=== PATIENT | female | born 1970 | race Caucasian/White ===

== ENCOUNTER 2016-08-25 08:01 | Emergency (ER) | payer BC ==
[~2016-08-25] VITALS: Ht 160 cm; Wt 86.2 kg
[~2016-08-25 08:01] MED LIST: AUGMENTIN 875875 M1 PO; BLACK COHOSH40 MG PO; CENTRUM SILVER1 EAC4 PO; DOCUSATE SODIU100 MG PO; FENOFIBRATE134 MG PO; FISH OIL 1,0001 EAC5 PO; FOLIC ACID 40400 MC1 PO; HYDROXYCHLOROQ200 M1 PO; IBUPROFEN 600600 M1 PO; KEFLEX250 MG PO; LEVOTHYROXIN0.175 MG PO; MEDROLDOSEPACK PO; MOTION RELIEF25 MG PO; MULTIVITAMINS PO; NASAL & SINUS D30 MG PO; NORCO 5-325 TA1 EACH PO; ONDANSETRON ODT4 MG PO; PAXIL10 MG PO; PRILOSEC 20 MG20 MG PO; SYNTHROID137 MCG PO; SYNTHROID150 MCG PO; VICODIN 5-5001 EACH PO
[2016-08-25] MEDS ORDERED: CIPRO500 MG PO (08:22)
[2016-08-25 08:29] LABS: URINE BILIRUBIN 1+ (Negative); URINE BLOOD 2+ (Negative); URINE COLOR YELLOW; URINE GLUCOSE-RANDOM* NEGATIVE (Negative); URINE KETONES TRACE (Negative); URINE LEUKOCYTES-REFLEX TRACE (Negative); URINE PROTEIN (DIPSTICK) 2+ (Negative)
[2016-08-25 08:33] LABS: ICTOTEST (BILI CONFIRMATORY) Negative (Negative)
[2016-08-25 08:39] LABS: HYALINE CASTS 0-3 Few /LPF (None Seen); SQUAMOUS 0-3 Few /LPF (0-3)
[2016-08-25 08:40] LABS: CRYSTALS None Seen /LPF (None Seen); URINE WBC-REFLEX 6-15 Few /HPF (0-5)
[2016-08-25 08:50] LABS: ABSOLUTE NEUTROPHILS 6.6 thou/uL (1.4-8.2); BASOPHILS 0.5 % (0.0-2.0); EOSINOPHILS 0.1 % (0.0-3.0); HEMATOCRIT 38.5 % (37.0-47.0); HEMOGLOBIN 12.8 gm/dL (12.0-15.0); LYMPHOCYTES 20.8 % (24.0-44.0); MCH 28.3 pg (26.0-34.0); MCHC 33.4 g/dL (28.0-37.0); MCV 84.9 fL (80.0-100.0); MONOCYTES 9.8 % (1.0-8.0); PLATELET COUNT 238 thou/uL (150-400); POLYS 68.8 % (36.0-66.0); RBC 4.54 mil/uL (4.20-5.00); RDW 13.2 % (10.5-14.5); WBC 9.6 thou/uL (4.0-11.0)
[2016-08-25 08:51] LABS: MANUAL DIFF NO
[2016-08-25 08:58] LABS: CALCIUM 9.2 mg/dL (8.5-10.1); CREATININE 0.9 mg/dL (0.6-1.0); POTASSIUM 3.4 mmol/L (3.5-5.1)
[2016-08-25] MEDS ORDERED: IBUPROFEN 600600 M1 PO (09:31)
== END 2016-08-25 10:41 | disposition home or self-care (01) ==
LOC: ER 08:01
PROVIDERS: Emergency Medicine
DX: N39.0 Urinary tract infection, site not specified (principal); K21.9 Gastro-esophageal reflux disease without esophagitis; E89.0 Postprocedural hypothyroidism; M32.9 Systemic lupus erythematosus, unspecified; Z90.710 Acquired absence of both cervix and uterus; Z85.41 Personal history of malignant neoplasm of cervix uteri; Z88.1 Allergy status to other antibiotic agents; Z88.2 Allergy status to sulfonamides; Z87.891 Personal history of nicotine dependence

== ENCOUNTER → 2017-05-23 | Outpatient (CLI) | payer BC ==
[~2017-05-23] MED LIST changes: +CIPRO500 MG PO
== END ==
LOC: ULTRA 10:35
DX: R22.1 Localized swelling, mass and lump, neck (principal)

== ENCOUNTER → 2018-07-10 | Outpatient (CLI) | payer BC | LOC: ULTRA 10:06 | DX: J34.2 Deviated nasal septum (principal); J01.90 Acute sinusitis, unspecified ==